=== PATIENT | male | born 1990 | race Two or more races ===

== ENCOUNTER 2020-11-05 22:49 | Emergency (ER) | payer SELFPAY ==
[~2020-11-05] VITALS: Ht 172.7 cm; Wt 72.6 kg
[2020-11-05] MEDS ORDERED: IV NORMAL SALINE 1000 ML BAG IV ONE (23:00)
--- NOTE | 2020-11-05 23:00 | NUR ---
Pt. bib RA 83 from home. RA 83 reported a possible overdose. Pt. restless, uncooperative, and moving limbs and thrashing. Pt. unable to answer questions. Attempts made to orient and calm patient were unsuccessful. Pt. kicked and attempted to bite himself and staff. notified and 4 pt. restraints placed as ordered. Vss. Will continue to monitor.
[2020-11-05] MEDS ORDERED: HALOPERIDOL LACTATE 5 MG/1 ML VIAL IV ONE (23:15)
[2020-11-05] MEDS ORDERED: diphenhydrAMINE 50 MG/1 ML VIAL IV ONE (23:15)
[2020-11-05] MEDS ORDERED: LORAZEPAM 2 MG/1 ML VIAL IV ONE (23:15)
[2020-11-05] MEDS ORDERED: HALOPERIDOL LACTATE 5 MG/1 ML VIAL ONE (23:20)
[2020-11-05] MEDS ORDERED: diphenhydrAMINE 50 MG/1 ML VIAL ONE (23:20)
[2020-11-05] MEDS ORDERED: LORAZEPAM 2 MG/1 ML VIAL ONE (23:21)
[2020-11-05 23:33] LABS: BASOPHILS % (AUTO) 0.3 % (0.0-2.0); EOSINOPHILS # (AUTO) 0.4 K/uL (0.0-0.7); EOSINOPHILS % (AUTO) 2.7 % (0.0-7.0); HEMOGLOBIN 14.6 g/dL (12.5-16.3); LYMPHOCYTES # (AUTO) 6.2 K/uL (20.0-40.0); LYMPHOCYTES % (AUTO) 41.6 % (20.5-51.5); MEAN CORPUSCULAR HEMOGLOBIN 31.7 uug (23.8-33.4); MEAN CORPUSCULAR HGB CONC 32 g/dL (32.5-36.3); MEAN CORPUSCULAR VOLUME 97.8 fL (73.0-96.2); MONOCYTES # (AUTO) 1.4 K/uL (2.0-10.0); MONOCYTES % (AUTO) 9.5 % (0.0-11.0); NEUTROPHILS # (AUTO) 6.9 K/uL (1.8-8.9); NEUTROPHILS % (AUTO) 45.9 % (38.5-71.5); PLATELET COUNT (AUTO) 406 K/uL (152-348)
[2020-11-05 23:38] LABS: CARBON DIOXIDE 23 mmol/L (21-32); CHLORIDE 102 mmol/L (98-107); CREATININE 1.2 mg/dL (0.6-1.3); GLUCOSE 137 mg/dL (74-106); POTASSIUM 3.8 mmol/L (3.5-5.1); UREA NITROGEN, BLOOD 16 mg/dL (7-18)
[2020-11-05 23:40] LABS: ETHANOL < 3 MG/DL (0-0)
[2020-11-05 23:44] LABS: ACETAMINOPHEN < 2.0 ug/mL (10-30); ALANINE AMINOTRANSFERASE 35 U/L (16-63); ALKALINE PHOSPHATASE 75 U/L (50-136); ASPARTATE AMINOTRANSFERASE 38 U/L (15-37); BILIRUBIN,DIRECT 0.1 mg/dL (0.0-0.2); BILIRUBIN,TOTAL 0.3 mg/dL (0.2-1.0)
[2020-11-06 00:10] LABS: *BILIRUBIN,URIN NEGATIVE (NEGATIVE); *BLOOD, URINE NEGATIVE (NEGATIVE); *COLOR,URINE YELLOW (YELLOW); *KETONES,URINE NEGATIVE (NEGATIVE); *UROBILINOGEN,URINE 0.2 E.U./dl (NORMAL); LEUKOCYTE ESTERASE ,URINE NEGATIVE (NEGATIVE); NITRITE, URINE NEGATIVE (NEGATIVE); PH,URINE 6.5 (5.0-8.0); UGLUCOSE NEGATIVE (NEGATIVE)
[2020-11-06] MEDS ORDERED: IV NORMAL SALINE 1000 ML BAG IV ONE ×2 (00:15→01:45)
[2020-11-06 00:20] LABS: *CLARITY,URINE HAZY (CLEAR)
[2020-11-06 00:21] LABS: BACTERIA,URINE NONE SEEN /HPF (NONE SEEN); RBC,URINE 0-3 /HPF (0-3); SQUAMOUS EPITHELIAL CELL,UR NONE SEEN /HPF (NONE SEEN); URINE AMORPHOUS URATE FEW /HPF; WBC,URINE 0-3 /HPF (0-3)
[2020-11-06 00:25] LABS: *AMPHETAMINE, URINE POSITIVE (NEGATIVE); *CANNABINOID, URINE POSITIVE (NEGATIVE); *COCCAINE, URINE NEGATIVE (NEGATIVE); *OPIATE, URINE NEGATIVE (NEGATIVE); *PHENCYCLIDINE SCREEN,URINE NEGATIVE (NEGATIVE)
[2020-11-06] MEDS ORDERED: HALOPERIDOL LACTATE 5 MG/1 ML VIAL IV ONE (01:00)
[2020-11-06] MEDS ORDERED: LORAZEPAM 2 MG/1 ML VIAL IV ONE ×2 (01:00→03:30)
--- NOTE | 2020-11-06 01:00 | NUR ---
Note robby in EDM - 11/06/20 at 0616 by MEHRDAD Staff removed alternating wrist and leg restraints intermittently but patient increased in agitation, thrashing, head hitting and attempted biting. Pt. danger to self and others. MD was notified. 4 pt. restraints reapplied and ativan and haldol were given.
--- NOTE | 2020-11-06 01:30 | NUR ---
Staff removed alternating wrist and leg restraints intermittently but patient increased in agitation, thrashing, head hitting and attempted biting. Pt. danger to self and others. MD was notified. 4 pt. restraints reapplied and ativan and haldol were given.
[2020-11-06] MEDS ORDERED: LORAZEPAM 2 MG/1 ML VIAL ONE ×2 (01:36→03:40)
[2020-11-06] MEDS ORDERED: HALOPERIDOL LACTATE 5 MG/1 ML VIAL ONE (01:36)
--- NOTE | 2020-11-06 02:15 | NUR ---
Removed left wrist and right leg. pt. less agitated and no longer attempting to bite but still uncooperative and thrasing. Nonivasive measures to calm patient not effective. Neurovascular status intact. Will continue to monitor.
--- NOTE | 2020-11-06 03:15 | NUR ---
Pt. increasingly kicking, yelling and trying to remove IV. Non-invasive measures attempted to calm and reorient patient were unsuccessful. notified.
--- NOTE | 2020-11-06 03:26 | NUR ---
Pt. still agitated, restless and uncooperative. MD notified and new order to continue 4 pt. restraints continued. Neurovascular status is intact and vss. Will continue to monitor.
--- NOTE | 2020-11-06 04:00 | NUR ---
Pt. still uncooperative. No longer trying to remove IV or kick staff, R wris and left leg restraints removed. neurovascular status intact. Will continue to monitor. Vss.
--- NOTE | 2020-11-06 04:30 | NUR ---
L wrist restraint removed. Pt. calmer but still uncooperative. Pt. does not answer questions, thrashes. Neurovascular status intact. vss. Will continue to monitor.
--- NOTE | 2020-11-06 05:00 | NUR ---
Pt. sleeping. Restraints removed. Will continue to monitor. VSS.
--- NOTE | 2020-11-06 07:39 | NUR ---
Recieved pt in bed, w/ both eyes closed. NAD noted. VSS.
--- NOTE | 2020-11-06 08:10 | NUR ---
Breakfast tray provided, pt is difficult to arouse, and when waken up, pt not wanting to eat.
--- NOTE | 2020-11-06 10:00 | NUR ---
LATE ENTRY: DOCUMENTATION FOR NS IVF BOLUS #1 AND #2: NS 1000 ML IV BOLUS #1 GIVEN VIA LAC. START TIME: 11/05/202315 END TIME : 11/06/20 002 NS 1000ML IV BOLUS #2 GIVEN VIA LAC. START TIME: 11/06/2019 END TIME : 11/06/200
--- NOTE | 2020-11-06 10:04 | NUR ---
Patient is resting comfortably in bed with eyes closed, NAD noted.
--- NOTE | 2020-11-06 12:45 | NUR ---
Pt resting w/ both eyes closed, NAD noted. Monitoring continues....
--- NOTE | 2020-11-06 13:32 | NUR ---
Lunch tray offered. Pt mumbled and went back to sleep, however easier to be aroused.
--- NOTE | 2020-11-06 16:40 | NUR ---
IV removed. Catheter intact and site benign. Pressure and 4x4 gauze applied to site. No bleeding noted.
--- NOTE | 2020-11-06 16:45 | NUR ---
Pt is awake, alert, oriented and ambulatory with steady gait. Pt ate and denied any SI/HI. No s/s of distress noted. Patient discharged to home in stable condition. Written and verbal after care instructions given. Patient verbalized understanding of instructions. Stressed follow up or return to ER for worsening s/s.
== END 2020-11-06 16:49 | disposition home or self-care (01) ==
LOC: ER 22:52
DX: F15.159 Other stimulant abuse with stimulant-induced psychotic disorder, unspecified (principal); R00.0 Tachycardia, unspecified; E87.2 Acidosis; R94.31 Abnormal electrocardiogram [ECG] [EKG]; F15.129 Other stimulant abuse with intoxication, unspecified
CPT/HCPCS: 36415 ×2; 71045; 80048; 80076; 80299; 80307; 80320; 81001; 83605 ×3; 85025; 93005; 96361; 96374; 96375; 96376; 99285; J1200; J1630 ×2; J2060 ×3; G0480; J7030